=== PATIENT | male | born 1925 | race Caucasian/White ===

== ENCOUNTER 2016-09-04 07:39 | Emergency (ER) | payer OTHER ==
[~2016-09-04] VITALS: Ht 172.7 cm; Wt 69.5 kg
[~2016-09-04 07:39] MED LIST: ADULT LOW DOSE81 M1 PO; ANAPROX DS550 M1 PO; ANCEF,KEFZ2 GM/100 M IV; ASPIR-LOW81 MG; ASPIR-LOW81 MG PO; ASPIRIN81 M1 PO; ATARAX,VISTARIL25 MG PO; AVODART0.5 MG PO; Aspirin E.C. PO; Atarax PO; BACTRIM,SEPT1 TABLET PO; CALTRATE 6001 TABLET PO; CELEBREX200 MG PO; COLACE100 MG PO; CORTISONE57 GM TP; Colace PO; Cortaid,Hytone 1% Cr TP; DAILY VITAMIN1 EAC8 PO; DETROL LA4 MG PO; DOCUSATE SODIU100 MG PO; Dulcolax PO; Ecotrin PO; FAMOTIDINE20 MG PO; FINASTERIDE5 MG; FINASTERIDE5 MG PO; FLEET MINERAL133 ML PR; FLOMAX0.4 MG PO; HYDROCHLOROTHIA25 MG PO; HYDROXYZINE HCL10 MG PO; Humibid LA,Mucinex PO; LEVOTHYROX PO; LEVOTHYROXINE50 MCG PO; LEVOTHYROXINE75 MCG PO; Levothroid,Synthroid PO; MUCINEX600 MG PO; Milk Of Magnesia,MOM PO; Motrin PO; POLYETHYLENE GL17 GM PO; PREDNISONE10 MG PO; PROSCAR5 MG PO; Percocet 5/325,Endoc PO; Proscar PO; SENNA8.6 MG PO; SIMVASTATIN10 MG PO; SIMVASTATIN20 MG PO; SYNTHROID75 MCG PO; Senokot S,Pericolace PO; TAMSULOSIN HCL0.4 MG PO; TOLTERODINE TART4 MG PO; TRAMADOL HCL50 MG PO; Tylenol Regular Stre PO; ULTRAM50 MG PO; UROXATRAL10 MG PO; VICODIN 5-3001 EACH PO; Vicodin,Norco 5/325 PO; Zocor PO; Zofran IV
[2016-09-04 08:46] LABS: HEMATOCRIT 39.4 % (38.0-50.0); MCH 31.2 PG (29.0-34.0); MCHC 33.8 G/DL (30.0-36.0); MCV 92.5 FL (86-99); MEAN PLAT.VOLUME 9.9 uM^3 (9.0-12.4); PLATELET COUNT 175 K/uL (156-360); RBC DIS.WIDTH-CV 13.3 % (11.8-14.6); RBC DIS.WIDTH-SD 43.5 % (39-53); RED BLOOD COUNT 4.26 M/uL (4.00-5.50); WHITE BLOOD COUNT 8.1 K/uL (4.1-10.2)
[2016-09-04 08:54] LABS: CHLORIDE 104 mEq/L (99-109); SODIUM 137 mEq/L (136-147)
[2016-09-04 08:56] LABS: GLUCOSE 123 mg/dL (70-99)
[2016-09-04 08:58] LABS: ANION GAP 9 MEQ/L (2-14); TOTAL BILIRUBIN 0.4 mg/dL (0.0-1.0)
[2016-09-04 09:00] LABS: ALKALINE PHOSPHATASE 95 IU/L (3-129); GFR ESTIMATE (CALCULATED) > 59 mL/min/
[2016-09-04 09:01] LABS: UREA NITROGEN (BUN) 18 mg/dL (9-23)
[2016-09-04 09:03] LABS: LIPASE 10 U/L (1.0-51.0)
[2016-09-04] MEDS ORDERED: COLACE100 MG PO (09:38)
[2016-09-04 10:47] VITALS: BP 146/77
== END 2016-09-04 11:05 | disposition home or self-care (01) ==
LOC: EME 07:39
PROVIDERS: Nurse Practitioner Family
DX: K59.00 Constipation, unspecified (principal); R10.9 Unspecified abdominal pain; R26.9 Unspecified abnormalities of gait and mobility; E78.5 Hyperlipidemia, unspecified; I10 Essential (primary) hypertension; K21.9 Gastro-esophageal reflux disease without esophagitis; E03.9 Hypothyroidism, unspecified; Z96.641 Presence of right artificial hip joint; Z96.651 Presence of right artificial knee joint; Z91.018 Allergy to other foods; Z88.8 Allergy status to other drugs, medicaments and biological substances
CPT/HCPCS: 74020; 80053; 81003; 83690; 85027; 99281; 99285

== ENCOUNTER 2016-12-25 13:29 | Emergency (ER) | payer OTHER ==
[~2016-12-25] VITALS: Ht 170.2 cm; Wt 64.2 kg
[2016-12-25 14:41] LABS: HEMATOCRIT 38.8 % (38.0-50.0); MCH 30.8 PG (29.0-34.0); MCV 93.3 FL (86-99); PLATELET COUNT 166 K/uL (156-360); RBC DIS.WIDTH-CV 12.9 % (11.8-14.6); RBC DIS.WIDTH-SD 44.2 % (39-53); RED BLOOD COUNT 4.16 M/uL (4.00-5.50); WHITE BLOOD COUNT 6.4 K/uL (4.1-10.2)
[2016-12-25 14:50] LABS: CHLORIDE 107 mEq/L (99-109); POTASSIUM 4.2 mEq/L (3.7-5.4); SODIUM 140 mEq/L (136-147)
[2016-12-25 14:52] LABS: GLUCOSE 113 mg/dL (70-99)
[2016-12-25 14:53] LABS: ANION GAP 8 MEQ/L (2-14)
[2016-12-25 14:55] LABS: GFR ESTIMATE (CALCULATED) > 59 mL/min/
[2016-12-25 14:56] LABS: UREA NITROGEN (BUN) 17 mg/dL (9-23)
[2016-12-25 15:05] LABS: ADD MIUA? YES; BILIRUBIN NEGATIVE; BLOOD SMALL; COLOR YELLOW ((YELLOW)); GLUCOSE (STRIP) NEGATIVE; KETONES NEGATIVE; LEUKOCYTES LARGE; NITRITE POSITIVE; PROTEIN (STRIP) NEGATIVE; UROBILINOGEN 0.2 MG/DL (0.2-1.0)
[2016-12-25 15:35] LABS: BACTERIA 2+ /HPF; CASTS NONE SEEN /LPF; CRYSTALS NONE SEEN; EPITHELIAL CELLS 1+ /HPF; MUCUS NONE SEEN /LPF; WHITE BLOOD CELLS TNTC /HPF (0-5)
[2016-12-25] MEDS ORDERED: MIRALAX255 GM PO (16:53)
[2016-12-25] MEDS ORDERED: KEFLEX500 MG PO (17:40)
[2016-12-25 17:56] VITALS: BP 152/71
== END 2016-12-25 20:29 | disposition home or self-care (01) ==
LOC: EME → EDBD 13:29 → EME 20:29
PROVIDERS: Emergency Medicine
DX: K59.00 Constipation, unspecified (principal); N39.0 Urinary tract infection, site not specified; F03.90 Unspecified dementia, unspecified severity, without behavioral disturbance, psychotic disturbance, mood disturbance, and anxiety; E78.5 Hyperlipidemia, unspecified; I10 Essential (primary) hypertension; Z87.440 Personal history of urinary (tract) infections; Z96.651 Presence of right artificial knee joint; Z96.641 Presence of right artificial hip joint; Z88.1 Allergy status to other antibiotic agents
CPT/HCPCS: 74176; 80048; 81003; 85027